=== PATIENT | male | born 1975 | race Caucasian/White ===

== ENCOUNTER 2016-11-21 12:26 | Emergency (ER) | payer OTHER ==
[2016-11-21 13:11] VITALS: BP 136/94
--- NOTE | 2016-11-21 14:56 | UC ---
Skin Complaint HPI - HPI Summary HPI Summary: LAST WEEK HAD CYST REMOVED FROM RIGHT ANTERIOR LEG. DID NOT TAKE OFF DRESSING, NOW REDNESS SWELLING AND TENDERNESS TO SUTURE SITE. - History of Current Complaint Chief Complaint: [facility] Time Seen by Provider: 11/21/16 14:15 Stated Complaint: STITCHES COMPLAINT Hx Obtained From: Patient Onset/Duration: Gradual Onset, Lasting Days, Still Present Skin Exposure Onset/Duration: Days Ago Timing: Constant Onset Severity: Mild Current Severity: Mild Pain Intensity: 3 Pain Scale Used: 0-10 Numeric Location: Discrete - RIGHT ANTERIOR LEG Character: Redness, Raised, Painful Aggravating: Nothing Alleviating: Nothing Associated Signs & Symptoms: Positive: Rash, Tenderness. Negative: Fever, Chills, Cough, Wheezing, Chest Pain, Hoarseness, Throat Tightening, Syncope, Drainage, Bruising, Red Streaks, Joint Swelling - Allergy/Home Medications Allergies/Adverse Reactions: Allergies Allergy/AdvReac Type Severity Reaction Status Date / Time No Known Allergies Allergy Verified 07/09/16 08:56 Home Medications: Home Medications Eszopiclone TAB(NF) [Lunesta TAB(NF)] 11/21/16 [History] Multiple Vitamins W/ Minerals [Multivitamin Adults] 1 tab PO 11/21/16 [History Confirmed 11/21/16] Naltrexone [Vivitrol] 11/21/16 [History] Omeprazole CAP* [Prilosec CAP* 20 MG] 20 mg PO DAILY 11/21/16 [History Confirmed 11/21/16] Review of Systems Constitutional: Negative Skin: Rash - RIGHT ANTERIOR LEG Eyes: Negative ENT: Negative Respiratory: Negative Cardiovascular: Negative Gastrointestinal: Negative Genitourinary: Negative Motor: Negative Neurovascular: Negative Musculoskeletal: Negative Neurological: Negative Psychological: Negative All Other Systems Reviewed And Are Negative: Yes PMH/Surg Hx/FS Hx/Imm Hx Previously Healthy: Yes Endocrine History Of: Denies: Diabetes, Thyroid Disease Cardiovascular History Of: Denies: Cardiac Disorders, Hypertension, Pacemaker/ICD Respiratory History Of: Denies: COPD, Asthma GI/ History Of: Denies: Ulcer, Renal Disease - Surgical History Surgical History: Yes Surgery Procedure, Year, and Place: left inguinal Hernia surgery. BROKEN GREAT TOE LEFT FOOT. ORBITAL EYE FRACTURE WITH MESH 1995 - Family History Known Family History: Negative: Diabetes, Blood Disorder - Social History Occupation: Employed Full-time Lives: With Family Alcohol Use: None Substance Use Type: None Smoking Status (MU): Never Smoked Tobacco Have You Smoked in the Last Year: No Physical Exam Triage Information Reviewed: Yes Appearance: Well-Appearing, No Pain Distress, Well-Nourished Vital Signs: Initial Vital Signs Temp 97.4 F 11/21/16 13:06 Pulse 58 11/21/16 13:06 Resp 18 11/21/16 13:06 BP 136/94 11/21/16 13:06 Pulse Ox 98 11/21/16 13:06 Vital Signs Reviewed: Yes Eye Exam: Normal Eyes: Positive: Conjunctiva Clear ENT Exam: Normal ENT: Positive: Normal ENT inspection, Hearing grossly normal, Pharynx normal, TMs normal Dental Exam: Normal Neck exam: Normal Neck: Positive: Supple, Nontender Respiratory Exam: Normal Respiratory: Positive: Chest non-tender, Lungs clear, Normal breath sounds, No respiratory distress Cardiovascular Exam: Normal Cardiovascular: Positive: RRR, No Murmur, Pulses Normal Abdominal Exam: Normal Abdomen Description: Positive: Nontender, No Organomegaly Musculoskeletal Exam: Normal Musculoskeletal: Positive: Strength Intact, ROM Intact Neurological Exam: Normal Psychological Exam: Normal Skin: Positive: rashes - 6CM X 3CM ERRETHEMATOUS AORE SURROUNDING SUTURE SITE. ERRETHEMA CORRESPONDS TO MARGINS OF FORMER ADHESIVE BANDAGE SUGGESTING CONTACT DERMATITIS, HOWEVER, THE ACTUAL WOUND SITE HAS ERRETHEMA WARMTH AND EDEMA WHICH IS CONCERNING FOR CELLULITIS Course/Dx - Differential Diagnoses - Skin Complaint Differential Diagnoses: Abscess, Cellulitis, Contact Dermatitis, Impetigo, MRSA - Diagnoses Provider Diagnoses: CONTACT DERMATITIS. CELLULITIS Discharge - Discharge Plan Condition: Stable Disposition: HOME Prescriptions: Cephalexin CAP* [Keflex CAP*] 500 mg PO QID #40 cap Patient Education Materials: Contact Dermatitis (ED), Cellulitis (ED) Referrals: Joey Mcginnis MD [Primary Care Provider] -
== END 2016-11-21 14:47 | disposition home or self-care (01) ==
LOC: UCEAST 12:26
DX: L03.115 Cellulitis of right lower limb (principal); L25.8 Unspecified contact dermatitis due to other agents
CPT/HCPCS: 99202; G0463